=== PATIENT | female | born 1990 | race Caucasian/White ===

== ENCOUNTER 2019-01-07 11:58 | Emergency (ER) | payer SELFPAY ==
[~2019-01-07] VITALS: Ht 157.5 cm; Wt 49.0 kg
[2019-01-07 12:43] VITALS: BP 120/72
== END 2019-01-07 19:15 | disposition left against medical advice (07) ==
LOC: ER 11:58
DX: Z53.21 Procedure and treatment not carried out due to patient leaving prior to being seen by health care provider (principal)